=== PATIENT | male | born 2000 | race Caucasian/White ===

== ENCOUNTER 2025-02-12 05:59 | Day surgery (SDC) | payer OTHER ==
[~2025-02-12] VITALS: Ht 157.5 cm; Wt 35.9 kg
[2025-02-12 08:00] LABS: PLATELET COUNT (AUTO) 158 K/uL (150-450); RED BLOOD CELL COUNT(AUTO) 5.91 MIL/uL (4.50-5.90); RED CELL DISTRIBUTION WIDTH 19.2 % (11.5-14.5); WHITE BLOOD COUNT (AUTO) 7.8 K/uL (4.5-11.0)
[2025-02-12 08:04] LABS: CALCIUM, TOTAL 9.1 mg/dL (8.8-10.5); CREATININE 0.25 mg/dL (0.60-1.30); GLOMERULAR FILTR. RATE CALC > 60 mL/min (>60); GLUCOSE,RANDOM 95 mg/dL (70-110); SODIUM SERUM 140 mmol/L (136-145); UREA NITROGEN, BLOOD 8 mg/dL (7-18)
[2025-02-12] MEDS ORDERED: CETI-261 GT (08:07)
[2025-02-12] MEDS ORDERED: BACL10TA GT (08:07)
[2025-02-12] MEDS ORDERED: FAMO20 GT (08:07)
[2025-02-12] MEDS ORDERED: MIDO5TAB29 GT (08:07)
[2025-02-12] MEDS ORDERED: MELA3TAB89 GT (08:07)
[2025-02-12] MEDS ORDERED: LEVE100S7 PO (08:07)
[2025-02-12] MEDS ORDERED: METO25 GT (08:07)
[2025-02-12] MEDS ORDERED: SIME80TA82 GT (08:07)
[2025-02-12] MEDS ORDERED: POLY17PO47 GT (08:07)
[2025-02-12] MEDS ORDERED: IVAB5TAB GT (08:07)
[2025-02-12] MEDS ORDERED: RINGERS SOLUTION,LACTATED 1,000 ML IV ONE (08:12)
[2025-02-12 08:13] LABS: ASPARTATE AMINOTRANSFERASE 49 U/L (15-37); TOTAL PROTEIN, SERUM 8.3 g/dL (6.4-8.2)
[2025-02-12] MEDS ORDERED: AMPICILLIN SODIUM 2 GM/NS 100 ML IV ONE (08:29)
[2025-02-12 08:33] LABS: RBC MORPHOLOGY COMMENT ABNORMAL RBC MORPH
[2025-02-12] MEDS ORDERED: POTASSIUM CHL 10 MEQ/WATER 50 ML IV ONE ×2 (08:35)
[2025-02-12] MEDS: RINGERS SOLUTION,LACTATED 1,000 ML IV ONE (08:40)
[2025-02-12] MEDS: POTASSIUM CHL 10 MEQ/WATER 50 ML IV SCH (08:45)
[2025-02-12] MEDS ORDERED: PROPOFOL 1% 20 ML VIAL IVP ONE (09:48)
[2025-02-12] MEDS ORDERED: PROPOFOL 1% ISO-OSM 1000 MG/100 ML BOTTLE ONE (09:48)
[2025-02-12] MEDS ORDERED: SODIUM CHLORIDE 0.9% 100 ML ONE (13:22)
== END 2025-02-12 15:35 | disposition home or self-care (01) ==
LOC: SURGERY 05:59
PROVIDERS: ATTEND Dentist General Practice
DX: K05.30 Chronic periodontitis, unspecified (principal); K02.9 Dental caries, unspecified; E66.9 Obesity, unspecified; F79 Unspecified intellectual disabilities; G40.909 Epilepsy, unspecified, not intractable, without status epilepticus; J96.10 Chronic respiratory failure, unspecified whether with hypoxia or hypercapnia; R94.31 Abnormal electrocardiogram [ECG] [EKG]; Z93.0 Tracheostomy status; Z93.1 Gastrostomy status; Z79.899 Other long term (current) drug therapy; Z98.890 Other specified postprocedural states
CPT/HCPCS: 41899; 71045; 80053; 84132; 85025; 85610; 85730; 36415; 93005; J0290; J2704 ×2; J0690; J3480; J7120; J7050